=== PATIENT | male | born 1990 | race Caucasian/White ===

== ENCOUNTER 2021-02-02 10:40 | Emergency (ER) | payer OTHER, MEDICAID ==
[2021-02-02] MEDS ORDERED: Sodium Chloride 0.9% 2.5 ML Syringe FLUSH PRN (10:48)
[2021-02-02] MEDS ORDERED: Sodium Chloride 0.9% 10 ML Syringe FLUSH PRN (10:48)
[2021-02-02] MEDS ORDERED: Diphtheria,Pertussis(Acell),Tetanus Vaccine 0.5 ML Syringe IM ONE (10:49)
[2021-02-02] MEDS ORDERED: Ondansetron 4 MG/2 ML SDV IVPUSH ONE (10:50)
[2021-02-02] MEDS ORDERED: Morphine 4 MG/ML Syringe IVPUSH ONE (10:50)
[2021-02-02] MEDS ORDERED: Bacitracin Oint 1 GM U/D Packet TOP ONE (10:50)
[2021-02-02] MEDS ORDERED: Iopamidol 755 MG/ML 200 ML Multipack Bottle IVPUSH ONE (11:20)
[2021-02-02] MEDS ORDERED: Iopamidol 755 MG/ML 500 ML Multipack Bottle IVPUSH ONE (11:21)
[2021-02-02 11:45] LABS: BLOOD UREA NITROGEN,BUN 13 mg/dL (7.0-18.0); CARBON DIOXIDE,CO2 23.9 mmol/L (21.0-32.0); CHLORIDE,CL 104 mmol/L (98-107); GLUCOSE RANDOM 127 mg/dL (74-106); POTASSIUM,K 3.9 mmol/L (3.5-5.1); SODIUM,NA 142 mmol/L (136-148)
--- NOTE | 2021-02-02 11:50 | CR ---
INDICATION: Trauma. FINDINGS: A single portable chest x-ray shows a normal cardiac silhouette. The lungs show no focal pulmonary opacities. Sharp pleural margins. No pneumothorax. IMPRESSION: No evidence of acute pulmonary abnormalities. Dictated by Catrachito Vitale MD @ 02/02/2021 11:48:[address] Catrachito Vitale @ Feb 02 2021 11:48AM
--- NOTE | 2021-02-02 11:58 | CT ---
INDICATION: Trauma. TECHNIQUE: CT scan of the abdomen and pelvis with 100 cc of Isovue-370 given intravenously. Venous and delayed postcontrast images obtained. FINDINGS: The lung bases are unremarkable. No focal abnormalities identified in the visualized portions of the liver, spleen, pancreas, and adrenal glands. 9 mm cyst in the interpolar region of the right kidney. The kidneys are otherwise unremarkable. No hydronephrosis. No obstructing uroliths. The GI tract is incompletely distended but shows no gross abnormalities. Go retroperitoneal, pelvic sidewall, or mesenteric adenopathy. No fractures identified. No free fluid in the abdomen. Subcutaneous edema over the left pelvis. IMPRESSION: 1. Subcutaneous edema over the left pelvis. 2. No other traumatic abnormalities of the abdomen or pelvis identified. Please note that all CT scans at this facility use dose modulation, iterative reconstruction, and/or weight-based dosing when appropriate to reduce radiation dose to as low as reasonably achievable. Dictated by Catrachito Vitale MD @ 02/02/2021 11:56:[address] Catrachito Vitale @ Feb 02 2021 11:56AM
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
== END 2021-02-02 13:00 ==
LOC: MW.ED 10:40
DX: S06.5X2A Traumatic subdural hemorrhage with loss of consciousness of 31 minutes to 59 minutes, initial encounter (principal); S06.6X2A Traumatic subarachnoid hemorrhage with loss of consciousness of 31 minutes to 59 minutes, initial encounter; S06.4X Epidural hemorrhage; S02.2XXA Fracture of nasal bones, initial encounter for closed fracture; S02.842A Fracture of lateral orbital wall, left side, initial encounter for closed fracture; F10.129 Alcohol abuse with intoxication, unspecified; Z72.0 Tobacco use; Y90.5 Blood alcohol level of 100-119 mg/100 ml; Z23 Encounter for immunization; V86.69XA Passenger of other special all-terrain or other off-road motor vehicle injured in nontraffic accident, initial encounter; Y92.410 Unspecified street and highway as the place of occurrence of the external cause
CPT/HCPCS: 36415; 70450; 70486; 71045; 72125; 74177; 80053; 80307; 85025; 90471; 90715; 96374; 96375; 99285; J2270; J2405; Q9967; 99291